=== PATIENT | female | born 2000 | race Caucasian/White ===

== ENCOUNTER 2018-09-16 09:28 | Inpatient (IN) | payer MEDICAID ==
[~2018-09-16] VITALS: Ht 152.4 cm; Wt 85.0 kg
[2018-09-17] MEDS ORDERED: LACTATED RINGERS 1,000 ML IV SCH ×2 (20:51→21:13)
[2018-09-17] MEDS ORDERED: OXYTOCIN 30U/ 0.9% NaCL 500ML 500 ML IV ONE ×2 (20:51→21:08)
[2018-09-17] MEDS ORDERED: D5%-LACTATED RINGERS 1,000 ML IV SCH ×2 (20:51→21:13)
[2018-09-17] MEDS ORDERED: OXYTOCIN 30U/ 0.9% NaCL 500ML 500 ML ONE (20:57)
[2018-09-17 21:00] VITALS: BP 129/70
[2018-09-17] MEDS ORDERED: FENTANYL PF 100 MCG/2ML IVPush PRN (21:00)
[2018-09-17] MEDS ORDERED: FENTANYL PF 100 MCG/2ML IV PRN ×2 (21:00→21:30)
[2018-09-17] MEDS ORDERED: CALCIUM CARBONATE 500 MG TAB.CHEW PO PRN ×2 (21:00→21:30)
[2018-09-17] MEDS ORDERED: ONDANSETRON 2MG/ML, 2ML IVPush PRN ×2 (21:00→21:30)
[2018-09-17] MEDS: D5%-LACTATED RINGERS 1,000 ML IV SCH (21:08)
[2018-09-17] MEDS: LACTATED RINGERS 1,000 ML IV SCH (21:08)
[2018-09-17 21:12] LABS: BASOPHILS # (AUTO) 0.02 x10^3/uL (0-0.3); BASOPHILS % (AUTO) 0 % (0-1); EOSINOPHILS # (AUTO) 0.12 x10^3/uL (0-0.8); EOSINOPHILS % (AUTO) 1 % (1-7); LYMPHOCYTES # (AUTO) 2.09 x10^3/uL (1-6.1); LYMPHOCYTES % (AUTO) 22 % (22-44); MD NO; MEAN CORPUSCULAR HEMOGLOBIN 29.8 pg (27.0-34.8); MEAN CORPUSCULAR HGB CONC 33.5 g/dL (32.4-35.8); MEAN CORPUSCULAR VOLUME 88.9 fL (80-100); MEAN PLATELET VOLUME 8.3 fL (7.4-10.4); MONOCYTES % (AUTO) 6 % (2-9); NEUTROPHILS # (AUTO) 6.74 x10^3/uL (1.8-8.0); NEUTROPHILS % (AUTO) 70 % (42-75); PLATELET COUNT 275 x10^3/uL (130-400); RED BLOOD COUNT 4.33 x10^6/uL (3.82-5.3); RED CELL DISTRIBUTION WIDTH 15.4 % (9.6-15.2)
[2018-09-17] MEDS ORDERED: MISOPROSTOL 25 MCG TABLET ONE (21:55)
[2018-09-17] MEDS ORDERED: MISOPROSTOL 25 MCG TABLET VG PRN (22:00)
[2018-09-17] MEDS ORDERED: PLEASE ENTER HEIGHT AND WEIGHT MC SCH (22:00)
[2018-09-18] MEDS ORDERED: FENTANYL/BUPIV./NS/PF 250 ML EPIDCONT SCH ×2 (04:35→08:13)
[2018-09-18] MEDS ORDERED: FENTANYL PF 100 MCG/2ML ONE ×2 (04:37→06:02)
[2018-09-18] MEDS: FENTANYL PF 100 MCG/2ML IVPush PRN ×2 (04:38→06:04)
[2018-09-18] MEDS ORDERED: FENTANYL PF 500 MCG, BUPIVACAINE/PF 0.5%, 30ML 62.5 ML in SODIUM CHLORIDE 0.9% 177.5 ML EPIDCONT SCH (05:00)
[2018-09-18] MEDS: LACTATED RINGERS 1,000 ML IV SCH ×2 (05:08→07:13)
[2018-09-18] MEDS: D5%-LACTATED RINGERS 1,000 ML IV SCH (05:08)
[2018-09-18] MEDS ORDERED: OXYTOCIN 30U/ 0.9% NaCL 500ML 500 ML IV PRN (06:00)
[2018-09-18] MEDS ORDERED: LIDOCAINE 1%, 20ML ONE (07:45)
[2018-09-18] MEDS ORDERED: BUPIVACAINE 0.25% ONE (07:45)
[2018-09-18] MEDS ORDERED: FENTANYL/BUPIV./NS/PF 250 ML EPIDCONT ONE (07:45)
[2018-09-18] MEDS ORDERED: LACTATED RINGERS 1,000 ML IV SCH (08:13)
[2018-09-18] MEDS ORDERED: LACTATED RINGERS 1,000 ML IVBOLUS PRN (08:30)
[2018-09-18] MEDS ORDERED: EPHEDRINE 50 MG/ML, 1ML IVPush PRN (08:30)
[2018-09-18] MEDS ORDERED: NALOXONE 0.4 MG/ML, 1ML IVPush PRN (08:30)
[2018-09-18 09:18] LABS: MEAN CORPUSCULAR HEMOGLOBIN 29.5 pg (27.0-34.8); MEAN CORPUSCULAR VOLUME 89.3 fL (80-100); MEAN PLATELET VOLUME 8.6 fL (7.4-10.4); PLATELET COUNT 267 x10^3/uL (130-400); RED BLOOD COUNT 4.39 x10^6/uL (3.82-5.3)
[2018-09-18 09:22] LABS: ALANINE AMINOTRANSFERASE 15 U/L (12-78); ALBUMIN 2.5 g/dL (3.4-5.0); ANION GAP 9 mmol/L (5-15); CALCIUM 8.9 mg/dL (8.5-10.1); CHLORIDE 108 mmol/L (98-107)
[2018-09-18 09:24] LABS: ALKALINE PHOSPHATASE 177 U/L (45-117); BILIRUBIN,TOTAL 0.3 mg/dL (0.2-1.0); TOTAL PROTEIN 6.4 g/dL (6.4-8.2)
[2018-09-18 09:33] LABS: BASOPHILS # (AUTO) 0.01 x10^3/uL (0-0.3); BASOPHILS % (AUTO) 0 % (0-1); EOSINOPHILS # (AUTO) 0.03 x10^3/uL (0-0.8); EOSINOPHILS % (AUTO) 0 % (1-7); LYMPHOCYTES % (AUTO) 10 % (22-44); MD SCAN; MONOCYTES # (AUTO) 0.38 x10^3/uL (0-1.4); MONOCYTES % (AUTO) 3 % (2-9); NEUTROPHILS # (AUTO) 10.06 x10^3/uL (1.8-8.0); NEUTROPHILS % (AUTO) 86 % (42-75)
[2018-09-18] MEDS ORDERED: DOCUSATE 100 MG CAPSULE PO PRN (12:30)
[2018-09-18] MEDS ORDERED: OXYcodone/APAP 5/325MG TABLET PO PRN (12:30)
[2018-09-18] MEDS ORDERED: OXYcodone IR 5MG TABLET PO PRN (12:30)
[2018-09-18] MEDS ORDERED: MISOPROSTOL 200 MCG TABLET PR PRN (12:30)
[2018-09-18] MEDS ORDERED: ACETAMINOPHEN 325 MG TABLET PO PRN (12:30)
[2018-09-18] MEDS ORDERED: RHOGAM FROM BLOOD BANK 1 NOTE EA IM/IV ONE (12:30)
[2018-09-18] MEDS ORDERED: IBUPROFEN 600 MG TABLET PO PRN (12:30)
[2018-09-18] MEDS ORDERED: ONDANSETRON 2MG/ML, 2ML IV PRN (12:30)
[2018-09-18] MEDS ORDERED: OXYTOCIN 30U/ 0.9% NaCL 500ML 500 ML ONE (14:15)
[2018-09-18] MEDS: OXYTOCIN 30U/ 0.9% NaCL 500ML 500 ML IV SCH ×2 (14:18→22:28)
[2018-09-18 15:50] VITALS: BP 126/65
[2018-09-18 20:14] LABS: BASOPHILS % (AUTO) 1 % (0-1); EOSINOPHILS # (AUTO) 0.03 x10^3/uL (0-0.8); EOSINOPHILS % (AUTO) 0 % (1-7); LYMPHOCYTES # (AUTO) 1.57 x10^3/uL (1-6.1); LYMPHOCYTES % (AUTO) 12 % (22-44); MD NO; MEAN CORPUSCULAR HEMOGLOBIN 29.6 pg (27.0-34.8); MEAN CORPUSCULAR VOLUME 89.6 fL (80-100); MEAN PLATELET VOLUME 8.4 fL (7.4-10.4); MONOCYTES # (AUTO) 0.68 x10^3/uL (0-1.4); MONOCYTES % (AUTO) 5 % (2-9); NEUTROPHILS # (AUTO) 10.85 x10^3/uL (1.8-8.0); NEUTROPHILS % (AUTO) 82 % (42-75); PLATELET COUNT 228 x10^3/uL (130-400); RED BLOOD COUNT 3.75 x10^6/uL (3.82-5.3); RED CELL DISTRIBUTION WIDTH 15.2 % (9.6-15.2)
[2018-09-18 20:50] VITALS: BP 122/81
[2018-09-19 00:30] VITALS: BP 103/65
[2018-09-19 03:30] VITALS: BP 112/73
[2018-09-19 07:20] VITALS: BP 111/70
[2018-09-19] MEDS: OXYTOCIN 30U/ 0.9% NaCL 500ML 500 ML IV SCH (08:28)
[2018-09-19] MEDS ORDERED: PRENATAL VIT/IRON/FA 1 EACH TABLET PO SCH (09:00)
[2018-09-19] MEDS ORDERED: IBUP-1222 PO (13:08)
[2018-09-19] MEDS ORDERED: DIPH,PERTUSS(ACELL),TET VAC/PF NC IM-VACC ONE ×2 (13:52→14:00)
== END 2018-09-19 15:30 | disposition home or self-care (01) | DRG 807 ==
LOC: LDIP 09-17 20:45 → 2NW 09-18 16:59
PROVIDERS: ADMIT Obstetrics & Gynecology; ATTEND Obstetrics & Gynecology
PROC: 3E0P7VZ Introduction of Hormone into Female Reproductive, Via Natural or Artificial Opening (ICD-10-PCS; 2018-09-17)
PROC: 3E033VJ Introduction of Other Hormone into Peripheral Vein, Percutaneous Approach (ICD-10-PCS; 2018-09-17)
PROC: 10E0XZZ Delivery of Products of Conception, External Approach (ICD-10-PCS; principal; 2018-09-18)
PROC: 0KQM0ZZ Repair Perineum Muscle, Open Approach (ICD-10-PCS; 2018-09-18)
PROC: 3E0R3BZ Introduction of Anesthetic Agent into Spinal Canal, Percutaneous Approach (ICD-10-PCS; 2018-09-18)
PROC: 00HU33Z Insertion of Infusion Device into Spinal Canal, Percutaneous Approach (ICD-10-PCS; 2018-09-18)
DX: O70.1 Second degree perineal laceration during delivery (principal); Z37.0 Single live birth; Z3A.39 39 weeks gestation of pregnancy; Z23 Encounter for immunization
CPT/HCPCS: 36415; 80053; 84550; 85025; 86850; 86900; 90715; G0378; J3010; J3490; J2590; J7120

== ENCOUNTER 2020-01-23 06:09 | Inpatient (IN) | payer MEDICAID, OTHER ==
[~2020-01-23] VITALS: Ht 152.4 cm; Wt 93.1 kg
[~2020-01-23 06:09] MED LIST: IBUP-1222 PO
[2020-01-23] MEDS ORDERED: D5%-LACTATED RINGERS 1,000 ML IV SCH (06:12)
[2020-01-23] MEDS ORDERED: OXYTOCIN 30U/ 0.9% NaCL 500ML 500 ML IV ONE (06:12)
[2020-01-23 06:23] VITALS: BP 106/70
[2020-01-23] MEDS ORDERED: PREN-3 PO (06:29)
[2020-01-23] MEDS ORDERED: TERBUTALINE 1 MG/ML, 1ML SQ PRN (06:30)
[2020-01-23] MEDS ORDERED: ONDANSETRON 2MG/ML, 2ML IVPush PRN ×2 (06:30→12:30)
[2020-01-23] MEDS ORDERED: FENTANYL PF 100 MCG/2ML IV PRN (06:30)
[2020-01-23] MEDS ORDERED: FENTANYL PF 100 MCG/2ML IVPush PRN (06:30)
[2020-01-23] MEDS ORDERED: CALCIUM CARBONATE 500 MG TAB.CHEW PO PRN (06:30)
[2020-01-23] MEDS ORDERED: TERBUTALINE 1 MG/ML, 1ML IVPush PRN (06:30)
[2020-01-23 06:39] LABS: BASOPHILS # (AUTO) 0.04 x10^3/uL (0-0.1); BASOPHILS % (AUTO) 1 % (0-1); EOSINOPHILS # (AUTO) 0.08 x10^3/uL (0-0.4); EOSINOPHILS % (AUTO) 1 % (1-7); LYMPHOCYTES # (AUTO) 2.08 x10^3/uL (1-3.4); LYMPHOCYTES % (AUTO) 35 % (22-44); MD NO; MEAN CORPUSCULAR HGB CONC 33.3 g/dL (32.4-35.8); MEAN CORPUSCULAR VOLUME 90.2 fL (80-100); MONOCYTES # (AUTO) 0.43 x10^3/uL (0.2-0.8); MONOCYTES % (AUTO) 7 % (2-9); NEUTROPHILS # (AUTO) 3.38 x10^3/uL (1.8-6.8); NEUTROPHILS % (AUTO) 56 % (42-75); PLATELET COUNT 267 x10^3/uL (130-400); RED BLOOD COUNT 4.17 x10^6/uL (3.82-5.3); RED CELL DISTRIBUTION WIDTH 14.1 % (9.6-15.2)
[2020-01-23] MEDS: LACTATED RINGERS 1,000 ML IV SCH ×4 (06:39→20:06)
[2020-01-23] MEDS ORDERED: OXYTOCIN 30U/ 0.9% NaCL 500ML 500 ML IV PRN (07:07)
[2020-01-23] MEDS ORDERED: LIDOCAINE 1%, 20ML ONE (07:09)
[2020-01-23] MEDS ORDERED: OXYTOCIN 30U/ 0.9% NaCL 500ML 500 ML ONE ×2 (07:09→12:32)
[2020-01-23] MEDS ORDERED: MISOPROSTOL 200 MCG TABLET ONE (07:09)
[2020-01-23] MEDS ORDERED: NEWBORN KIT ONE (07:16)
[2020-01-23] MEDS ORDERED: FENTANYL/BUPIV./NS/PF 250 ML EPIDCONT ONE (07:49)
[2020-01-23] MEDS ORDERED: BUPIVACAINE 0.25% ONE (08:52)
[2020-01-23] MEDS ORDERED: FENTANYL PF 100 MCG/2ML ONE (08:52)
[2020-01-23] MEDS ORDERED: IBUPROFEN 600 MG TABLET ONE (11:26)
[2020-01-23] MEDS ORDERED: ACETAMINOPHEN 325 MG TABLET PO PRN (11:30)
[2020-01-23] MEDS ORDERED: SIMETHICONE 80 MG CHEW TAB PO PRN (11:30)
[2020-01-23] MEDS ORDERED: METOCLOPRAMIDE 5 MG/ML, 2ML IV PRN (11:30)
[2020-01-23] MEDS ORDERED: OXYcodone/APAP 5/325MG TABLET PO PRN (11:30)
[2020-01-23] MEDS ORDERED: IBUPROFEN 800 MG TABLET PO PRN (11:30)
[2020-01-23] MEDS ORDERED: CARBOPROST TROMETHAMINE 250 MCG/ML, 1ML IM PRN (11:30)
[2020-01-23] MEDS ORDERED: MISOPROSTOL 200 MCG TABLET PO PRN (11:30)
[2020-01-23] MEDS ORDERED: ONDANSETRON 2MG/ML, 2ML IV PRN (11:30)
[2020-01-23] MEDS ORDERED: GLYCERIN ADULT SUPP PR PRN (11:30)
[2020-01-23] MEDS ORDERED: BISACODYL 10 MG SUPP PR PRN (11:30)
[2020-01-23] MEDS ORDERED: METHYLERGONOVINE 0.2 MG/ML IM PRN (11:30)
[2020-01-23] MEDS: IBUPROFEN 600 MG TABLET PO PRN ×2 (11:30→23:47)
[2020-01-23] MEDS ORDERED: FENTANYL/BUPIV./NS/PF 250 ML EPIDCONT SCH (12:06)
[2020-01-23] MEDS ORDERED: LACTATED RINGERS 1,000 ML IVBOLUS PRN (12:30)
[2020-01-23] MEDS ORDERED: EPHEDRINE 50 MG/ML, 1ML IVPush PRN (12:30)
[2020-01-23] MEDS: OXYTOCIN 30U/ 0.9% NaCL 500ML 500 ML IV SCH ×2 (12:33→21:29)
[2020-01-23 13:15] VITALS: BP 111/75
[2020-01-23 17:00] VITALS: BP 109/73
[2020-01-23 20:10] VITALS: BP 100/67
[2020-01-23 20:15] LABS: BASOPHILS # (AUTO) 0.05 x10^3/uL (0-0.1); BASOPHILS % (AUTO) 1 % (0-1); EOSINOPHILS % (AUTO) 1 % (1-7); LYMPHOCYTES # (AUTO) 2.12 x10^3/uL (1-3.4); LYMPHOCYTES % (AUTO) 21 % (22-44); MD NO; MEAN CORPUSCULAR HEMOGLOBIN 30.1 pg (27.0-34.8); MEAN CORPUSCULAR HGB CONC 33.1 g/dL (32.4-35.8); MEAN CORPUSCULAR VOLUME 90.9 fL (80-100); MONOCYTES # (AUTO) 0.71 x10^3/uL (0.2-0.8); MONOCYTES % (AUTO) 7 % (2-9); NEUTROPHILS # (AUTO) 7.23 x10^3/uL (1.8-6.8); NEUTROPHILS % (AUTO) 71 % (42-75); PLATELET COUNT 246 x10^3/uL (130-400); RED BLOOD COUNT 3.73 x10^6/uL (3.82-5.3); RED CELL DISTRIBUTION WIDTH 13.8 % (9.6-15.2)
[2020-01-23 23:45] VITALS: BP 91/51
[2020-01-23] MEDS: DOCUSATE 100 MG CAPSULE PO PRN (23:47)
[2020-01-24] MEDS: LACTATED RINGERS 1,000 ML IV SCH (04:06)
[2020-01-24 04:25] VITALS: BP 100/65
[2020-01-24 07:10] VITALS: BP 93/56
[2020-01-24] MEDS: OXYTOCIN 30U/ 0.9% NaCL 500ML 500 ML IV SCH (07:29)
[2020-01-24] MEDS: DOCUSATE 100 MG CAPSULE PO PRN (07:47)
[2020-01-24] MEDS: IBUPROFEN 600 MG TABLET PO PRN ×2 (07:47→14:02)
[2020-01-24] MEDS ORDERED: PRENATAL VIT/IRON/FA 1 EACH TABLET PO SCH (09:00)
[2020-01-24] MEDS ORDERED: IBUP-1223 PO (13:28)
== END 2020-01-24 14:10 | disposition home or self-care (01) | DRG 807 ==
LOC: LDIP 06:09 → 2NW 14:46
PROVIDERS: ADMIT Student in an Organized Health Care Education/Training Program; ATTEND Student in an Organized Health Care Education/Training Program
PROC: 10E0XZZ Delivery of Products of Conception, External Approach (ICD-10-PCS; principal; 2020-01-23)
PROC: 0KQM0ZZ Repair Perineum Muscle, Open Approach (ICD-10-PCS; 2020-01-23)
PROC: 10907ZC Drainage of Amniotic Fluid, Therapeutic from Products of Conception, Via Natural or Artificial Opening (ICD-10-PCS; 2020-01-23)
PROC: 3E033VJ Introduction of Other Hormone into Peripheral Vein, Percutaneous Approach (ICD-10-PCS; 2020-01-23)
PROC: 3E0R3BZ Introduction of Anesthetic Agent into Spinal Canal, Percutaneous Approach (ICD-10-PCS; 2020-01-23)
PROC: 00HU33Z Insertion of Infusion Device into Spinal Canal, Percutaneous Approach (ICD-10-PCS; 2020-01-23)
DX: O13.4 Gestational [pregnancy-induced] hypertension without significant proteinuria, complicating childbirth (principal); Z37.0 Single live birth; O24.429 Gestational diabetes mellitus in childbirth, unspecified control; O70.1 Second degree perineal laceration during delivery; Z3A.39 39 weeks gestation of pregnancy; Z03.818 Encounter for observation for suspected exposure to other biological agents ruled out
CPT/HCPCS: 36415; 85025; 86592; 86850; 86900; 87635; G0378; J2590; J7120

== ENCOUNTER 2020-06-02 15:09 | Emergency (ER) | payer MEDICAID ==
[~2020-06-02] VITALS: Ht 154.9 cm; Wt 82.6 kg
[~2020-06-02 15:09] MED LIST changes: +IBUP-1223 PO; +PREN-3 PO
--- NOTE | 2020-06-02 16:18 | NUR ---
CUSTOMER EXPERT: PT TO ROOM FROM LOBBY
--- NOTE | 2020-06-02 16:43 | NUR ---
Pt here for intermittant CP with SOB for "weeks".
[2020-06-02 18:22] VITALS: BP 119/85
== END 2020-06-02 18:24 | disposition home or self-care (01) ==
LOC: ED 18:15
DX: R07.2 Precordial pain (principal); R07.1 Chest pain on breathing; R94.31 Abnormal electrocardiogram [ECG] [EKG]
CPT/HCPCS: 71045; 93005; 99283